=== PATIENT | male | born 1955 | race Caucasian/White ===

== ENCOUNTER 2023-09-01 12:16 | Emergency (ER) | payer MEDICARE, SELFPAY ==
--- NOTE | 2023-09-01 12:32 | ED.GENADULT ---
HPI - General Adult General Chief complaint: Upper Respiratory Infection Stated complaint: Congestion/throat Source: patient, RN notes reviewed and old records reviewed Mode of arrival: ambulatory Limitations: no limitations History of Present Illness HPI narrative: 67-year-old male patient presents to [facility] with complaint of cough, congestion, sore throat per 10 days. Patient taking NyQuil on occasion. Patient states symptoms are improving but worried because he is not completely better. Patient denies chest pain, shortness of breath, dizziness, weakness, fever. patient states is also now sic Related Data Home Medications Medication Instructions Recorded Confirmed allopurinol 300 mg tablet mg 09/01/23 atorvastatin 40 mg tablet mg 09/01/23 clopidogrel 75 mg tablet mg 09/01/23 gabapentin 300 mg capsule mg 09/01/23 hydrocodone 5 mg-acetaminophen 325 tablet 09/01/23 mg tablet levothyroxine 125 mcg tablet mcg 09/01/23 trazodone 50 mg tablet mg 09/01/23 Allergies Allergy/AdvReac Type Severity Reaction Status Date / Time aspirin AdvReac Unknown makes me Unverified 11/12/13 15:22 bleed longer than usual Review of Systems Constitutional: Constitutional: Reports no additional constitutional complaints, Denies body ache(s), Denies chills, Denies fatigue, Denies fever(s) and Denies headache(s) Eyes: Eyes: Reports no additional eye complaints and Denies blurry vision ENT: Reports system reviewed and no additional complaints, except as documented, Denies vertigo, Denies dizziness, Denies ear discharge, Denies otalgia, Denies facial pain, Denies headache(s), Reports nasal congestion, Reports nasal discharge, Denies sinus pain, Denies sinus pressure and Reports sore throat Cardiovascular: Cardiovascular: Reports no additional cardiovascular complaints, Denies chest pain, Denies chest pain at rest, Denies rapid heart rate and Denies dyspnea Respiratory: Respiratory: Reports no additional respiratory complaints, Reports chest congestion, Reports cough, Denies pain on inspiration, Denies pain with cough and Denies dyspnea Gastrointestinal: Gastrointestinal: Denies abdominal pain, Denies diarrhea, Denies nausea and Denies vomiting Integumentary/Breasts: Skin/Breast: Denies rash Neurologic: Reports system reviewed and no additional complaints, except as documented, Denies vertigo, Denies dizziness and Denies headache(s) Endocrine: Endocrine: Denies fatigue PMFSH Comments At the time of my signature, I reviewed and agree with the nursing past medical, surgical, social, and family history. There is no relevant family history pertinent to the patient complaint. Exam Const: General: cooperative, healthy appearing, no acute distress and well nourished Nutritional Appearance: well nourished Orientation/consciousness: patient oriented x3 Limitations: no limitations HENMT: Head: normal to inspection and normocephalic Ears: external ears normal, TM's normal bilaterally, mastoids normal and Abnormal EAC present Face/Nose/Sinus: normal facial exam Face and sinus: normal facial exam Mouth: Yes Normal oral and palatal mucosa present, Yes oropharynx normal and Yes moist mucous membranes Throat: tonsils normal, uvula midline and no uvular edema Eyes: General: appearance normal, both eyes and all related structures Sclera: sclerae normal Pupils: Equal, round and reactive pupils present Resp: Effort & Inspection: normal respiratory effort, able to speak in complete sentences, no audible wheezes, no cough, no respiratory distress and no retractions Auscultation: clear to auscultation bilaterally, no crackles, no rales, no rhonchi and no wheezes Cardio: Rate: regular rate Rhythm: regular rhythm Skin: General skin exam: normal color and no rashes or lesions noted Neuro: General: patient oriented x3 Cranial nerves: Yes Equal, round and reactive pupils present Psych: Appearance: grossly normal Menta
[2023-09-01 12:39] VITALS: BP 160/74; PULSE 96; RESP 16; TEMP 37.1; O2SAT 98
== END 2023-09-01 12:49 | disposition home or self-care (01) ==
PROVIDERS: Emergency Provider Registered Nurse; PCP Internal Medicine
DX: B34.9 Viral infection, unspecified (principal); E78.00 Pure hypercholesterolemia, unspecified; M10.9 Gout, unspecified
CPT/HCPCS: 99203; G0463

== ENCOUNTER 2024-09-20 12:30 | Emergency (ER) | payer MEDICARE, SELFPAY ==
[2024-09-20 12:54] VITALS: BP 161/92; PULSE 97; RESP 20; TEMP 36.5; O2SAT 97
--- NOTE | 2024-09-20 12:55 | ED_ITS ---
HPI - URI/Sore Throat General Chief Complaint: Upper Respiratory Infection Stated Complaint: PERSISTENT COUGH X1 MONTH Time Seen by Provider: 09/20/24 13:17 Source: patient and RN notes reviewed Mode of arrival: ambulatory Limitations: no limitations History of Present Illness HPI Narrative: 68-year-old male presents with concern for cough for 1 month. Reports that started get better poison not go away and then got worse. He has been taking [id number] medications without relief MD elicited complaint: cough Related Data Home Medications ?Medication ?Instructions ?Recorded ?Confirmed ?Last Taken ?Type allopurinol 300 mg tablet mg 09/01/23 Unknown History atorvastatin 40 mg tablet mg 09/01/23 Unknown History clopidogrel 75 mg tablet mg 09/01/23 Unknown History gabapentin 300 mg capsule mg 09/01/23 Unknown History hydrocodone 5 mg-acetaminophen 325 tablet 09/01/23 Unknown History mg tablet levothyroxine 125 mcg tablet mcg 09/01/23 Unknown History trazodone 50 mg tablet mg 09/01/23 Unknown History Allergies Allergy/AdvReac Type Severity Reaction Status Date / Time aspirin AdvReac Unknown makes me Unverified 09/20/24 12:59 bleed longer than usual Review of Systems Review of Systems: CONSTITUTIONAL: Reports malaise. Denies chills, sweats, or fever. EYES: Denies visual changes, redness, or discharge. ENT: Denies rhinorrhea, congestion, sinus pain, otalgia and sore throat. CARDIOVASCULAR: Denies chest pain, palpitations, or edema. RESPIRATORY: Reports persistent cough. Denies dyspnea. GASTROINTESTINAL: Denies abdominal pain, nausea, vomiting, diarrhea SKIN: Denies rash or itching. MUSCULOSKELETAL: Denies myalgia. NEUROLOGIC: Denies headache. All systems reviewed & are unremarkable except as noted in HPI and below PMFSH Comments At time of signature, agree with nursing past medical, surgical, social and family history. There is no relevant family history pertinent to the presenting complaint Exam Narrative: GENERAL: Well-appearing, well-nourished, and in no acute distress. HEAD: Normocephalic EYES: PERRLA, conjunctivae clear ENT: Nares clear Mucous membranes moist. TM pearly hwang with sharp light reflex bilaterally; no tragal tenderness. Oropharynx not erythematous without lesions. Tonsils not enlarged and without exudate, no drooling, no hoarseness, no trismus, uvula midline. NECK: Supple. No lymphadenopathy CHEST: Clear to auscultation, breath sounds equal. No wheezing, rhonchi, rales, or stridor. No respiratory distress, speaks in full sentences. Cough noted HEART: Regular rate and rhythm. No murmur heard. SKIN: Warm, dry, no rash. NEURO: Alert and oriented x3. PSYCH: Normal mood and affect Course Course Emergency Course: Patient is aware of diagnosis, understands and agrees to treatment plan. Anticipatory guidance given. Patient agrees to follow-up as directed and is aware of reasons to seek care at the emergency department. Portions of this record may have been created with voice recognition software Level of Care: Express Care Visit Vital Signs Vital signs: Vital Signs Temperature 97.7 F 09/20/24 12:54 Pulse Rate 97 09/20/24 12:54 Respiratory Rate 20 09/20/24 12:54 Blood Pressure 161/92 H 09/20/24 12:54 Pulse Oximetry 97 09/20/24 12:54 Oxygen Delivery Room Air 09/20/24 12:54 Temperature 97.7 F 09/20/24 12:54 Pulse Rate 97 09/20/24 12:54 Respiratory Rate 20 09/20/24 12:54 Blood Pressure 161/92 H 09/20/24 12:54 Pulse Oximetry 97 09/20/24 12:54 Oxygen Delivery Room Air 09/20/24 12:54 Reviewed. MDM - URI/Sore Throat MDM Narrative Medical decision making narrative: Differential diagnosis considered: Castro virus, strep pharyngitis, allergic rhinitis, upper respiratory tract infection, sinusitis, rhinosinusitis, nasopharyngitis. viral pharyngitis, otitis media, otitis externa, pneumonia, bronchitis, viral cough syndrome, viral syndrome, and influenza. Exam findings show no acute concerns or changes; patient is non-toxic appearing and is in no distress. Patient is appropriate for outpatient treatment and follow-up. Lab Data Attestation: I reviewed the patient's lab results. Critical Care Time Critical Care Time Critical Care Time: No Discharge Plan Discharge Clinical Impression: Lower respiratory tract infection Patient Disposition: Home, Self-Care Condition: Stable Instructions: Antibiotic Form, Acute Cough (ED) Additional Instructions: 1) Please follow-up with your primary care doctor in the next 1-2 days. 2) If you have any worsening of symptoms or any other urgent concerns please go to the ER. 3) Please take medications as prescribed and continue taking your home medications as usual. 4) Please read and follow information included in discharge instructions. Patient Language: [place] Prescriptions: New azithromycin [Zithromax Z-Crispin] 250 mg tablet See Rx Instructions .ROUTE .COMPLEX Qty: 6 0RF Rx Instructions: take 500 mg today (day 1), then 250 mg for 4 days (days 2-5) methylprednisolone [Medrol (Crispin)] 4 mg tablets,dose pack See Rx Instructions .ROUTE .COMPLEX Qty: 21 0RF Rx Instructions: orally per package directions No Action atorvastatin 40 mg tablet trazodone 50 mg tablet hydrocodone-acetaminophen 5-325 mg tablet clopidogrel 75 mg tablet levothyroxine 125 mcg tablet gabapentin 300 mg capsule allopurinol 300 mg tablet benzonatate 100 mg capsule 100 mg PO TID PRN (Reason: cough) Qty: 10 0RF Follow-up/Referrals: Symone,Rober Crockett MD [Primary Care Provider] - Time of Disposition: 13:37
--- OUTSIDE RECORDS SUMMARY | 2024-09-20 14:22 | XMS_ITS | CONTINUITY OF CARE DOCUMENT ---
Author Name dale hunter Address Unknown Organization [facility] Address [address] [place] [address] Phone [phone] Care Team Providers Care Control Room Operator Name Role Phone Danika Ortiz MD Unavailable ROBERT RICHARDSON MD Unavailable [phone] ROBERT RICHARDSON MD Unavailable PROBLEMS Condition Status Date Provider Notes Other symptoms involving car diovascular system active Danika Ortiz MD CAD - S/P four vessel CABG 2 014 - Casey to LAD, Casey to radial and sequential OM1 & OM3, SVG to RCA active Danika Ortiz MD Carotid artery stenosis - s/ p right carotid endartectomy 2016 active Danika Ortiz MD Gout active Danika Ortiz MD Hypothyroidism active Danika Ortiz MD Prediabetes active Danika Ortiz MD Hyperlipidemia active Danika Ortiz MD back pain active Danika Ortiz MD ENCOUNTERS Date Type Provider Location Encounter Diag nosis - In-person encounter Office Visit Danika Ortiz MD [place] [facility] CAD - S/P four vessel CABG 2014 - Casey to LAD, Casey to radial and sequential OM1 & OM3, SVG to RCAHyperlipidemia - In-person encounter Office Visit Danika Ortiz MD [facility] Other symptoms involving cardiovascular systemCAD - S/P four vessel CABG 2014 - Casey to LAD, Casey to radial and sequential OM1 & OM3, SVG to RCACarotid artery stenosis - s/p right carotid endartectomy 2016GoutHypothyroidismPr ediabetesHyperlipidemiab ack pain VITAL SIGNS Date Observation Value Provider Body Mass Index (Ratio) 32.88 kg/m2 Jane Ortiz MD blood pressure, diastolic 90 mm[Hg] Yin Conklin Darin blood pressure, systolic 153 mm[Hg] Anne Marie Davenport Darin oxygen saturation, oximetry 99 % Justencelestine Webster respiratory rate E&M 18 /min Torsten green Webster pulse rate 87 /min Justen Soham mae weight E&M 235.8 [lb_av] Justen Roger fabiola height E&M 71 [in_i] Justen Soham mae Body Mass Index (Ratio) 32.63 kg/m2 Jane Ortiz MD blood pressure, cuff size large Crow Jacobo blood pressure, diastolic 78 mm[Hg] Crow Jacobo blood pressure, systolic 128 mm[Hg] Jimmy Jacobo oxygen saturation, oximetry 97 % Britney Jacobo respiratory rate E&M 18 /min Britney Jacobo pulse rate 94 /min Britney Jacobo weight E&M 234 [lb_av] Britney Jacobo height E&M 71 [in_i] Britney Jacobo ALLERGIES No Known Drug Allergies HISTORY OF MEDICATION USE Medication Status Instructions Dates Provider Indications Com ments TRAZODONE HCL 50 MG ORAL TABLET active 1 tab at bedtime Britney Jacobo LEVOTHYROXINE SODIUM 125 MCG ORAL TABLET active ONE TAB. DAILY Britney Jacobo ALLOPURINOL 300 MG ORAL TABLET active ONE TAB. DAILY Britney Jacobo CLOPIDOGREL BISULFATE 75 MG ORAL TABLET active 1 tab daily Britney Jacobo HYDROCODONE-ACETAMIN OPHEN 7.5-325 MG ORAL TABLET active as needed Britney Jacobo ATORVASTATIN CALCIUM 80 MG ORAL TABLET active 1 tab daily Britney Jacobo SOCIAL HISTORY Date Observation Value Provider social history E&M S moking History: P atient is a former smoker. Danika Ortiz MD social history reviewed E&M revi ewed - no changes required Danika Ortiz MD smoking, year quit 2014 Justen Webster cigarette use yes Justen hicks smoking status Former smoker Justen Denis social history E&M S moking History: Windy carter is a former smoker. Danika Ortiz MD social history reviewed E&M revi ewed - no changes required Danika Ortiz MD number of grandchildren Danika Jacobo smoking, year quit 2014 Britney Cm briscoe cigarette use yes Britney Jacobo smoking status Former smoker Britney tran FUNCTIONAL STATUS Date Observation Value Provider HRA, CV Assess/Plan, Angina (inactive) Management Plan continue current therapy Danika Ortiz MD HRA, CV Assess/Plan, Angina (inactive) Management Plan continue current therapy Danika Ortiz MD FAMILY HISTORY Family Member Condition Mother Family History Unkno wn INSURANCE PROVIDERS Payer name Policy type / Coverage type [place] [employer] party ID [facility] [id number] ADVANCE DIRECTIVES Name Date DISCUSSED - NO DECISION MADE TREATMENT PLAN Date Name Performer Cardiology:No recurrence. On all opurinol 300mg a day. Danika Ortiz MD Cardiology:Chest eri n free. Continues on aspirin and palvix and has remained asymptomatic with normal effort tolerance. Danika Ortiz MD Cardiology:On low carb diet. Lewis Ortiz MD Cardiology:On replacement therap y. Danika Ortiz MD Cardiology:No recurrence. On all opurino 300mg a day. Danika Ortiz MD Cardiology:On atorvastatin which he continues. Danika Ortiz MD Cardiology:No caroti d bruits. Had a carotid doppler done from [facility] the results of which are pending. Danika Ortiz MD Cardiology:Chest eri n free. Continues on aspirin and palvix and has remaind asymptomatic with normal effort tolerance. Danika Ortiz MD Cardiology:Last blood sugar was 108. Danika Ortiz MD Cardiology:Takes pain medicine i ntermittently. Danika Ortiz MD Cardiology:On atorvastatin 80 mg daily. Danika Ortiz MD Cardiology:On replacement therap y, which he continues. Danika Ortiz MD Cardiology:He has a right carotid bruit. Recently had a carotid doppler at [facility], will get the report. Danika Ortiz MD Cardiology:He has do ne remarkably well. Has good exercise tolerance, no symptoms of CP or SOB. He is on ASA/plavix which he continues. We will get his bypass report from [facility]. Danika Ortiz MD HISTORY OF PROCEDURES Procedure Date Procedure Name Provider Procedure Notes S tatus EKG Danika Ortiz MD complet ed SNOMED-CT: [id number] Current Medications Documented Danika Ortiz MD completed EKG Danika Ortiz MD complet ed SNOMED-CT: [id number] Current Medications Documented Danika Ortiz MD completed
--- OUTSIDE RECORDS SUMMARY | 2024-09-20 14:22 | XMS_ITS | Clinical Summary ---
Author Organization [facility] Address [address] [place] [address] Care Team Providers Care Hris Manager Name Role Phone Rober Ashby MD Primary Care Provider + Allergies No known active allergies Medications mupirocin (BACTROBAN) 2 % ointment Apply topically 2 (two) times a day Apply to area of infection right side of neck with each dressing change. Collaborating physician Ross Strong MD 22 g 1 4 Active Active Problems Problem Noted Date Diagnosed Date Infected sebaceous cyst of skin 08/08/2023 Surgical History Surgery Date Site/Laterality Comments CAROTID ENDARTERECTOMY Social History Tobacco Use Types Packs/Day Years Used Date Smoking Tobacco: Former Cigarettes Tobacco Cessation:Counseling Given: Not Answered Alcohol Use Standard Drinks/Week Comments Not Currently 0 (1 standard drink = 0.6 oz pur e alcohol) Personal Safety Answer Date Recorded Have you ever been in or are you currently in a harmful physical or emotional relationship or is someone making you feel afraid or unsafe? 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 Gender Identity Not on file Sexual Orientation Not on file Obstetrics History Last Filed Vital Signs Vital Sign Reading Time Taken Comments Blood Pressure 135/92 08/08/2023 8:18 PM STEAM PIPE FITTER Pulse 89 08/08/2023 8:18 PM STEAM PIPE FITTER Temperature 36.9 C (98.4 F) 08/08/2023 8:18 PM STEAM PIPE FITTER Respiratory Rate 16 08/08/2023 8:18 PM STEAM PIPE FITTER Oxygen Saturation 97% 08/08/2023 8:18 PM STEAM PIPE FITTER Inhaled Oxygen Concentration - - Weight 106.6 kg (235 lb) 08/08/2023 5:50 PM STEAM PIPE FITTER Height 180.3 cm (5' 11 ) 08/08/2023 5:50 PM STEAM PIPE FITTER Body Mass Index 32.78 08/08/2023 5:50 PM STEAM PIPE FITTER Plan of Treatment Health Maintenance Due Date Last Done Comments Colon Cancer Screening-Colonoscopy 1955 Depression Screening 1955 Fall Risk Assessment 1955 Hepatitis C Screening 1955 Hepatitis B Screening 10/26/1971 Abdominal Aortic Aneurysm (A AA) Screen 2018 06/25/2017 Well Visit 65+ 2018 DTaP/Tdap/Td Vaccine (2 - Td or Tdap) 09/28/2023 09/27/2013 Covid-19 Vaccine ( - 2023-2 5 season) 2024 05/13/2022, 10/12/2020, 09/24/2020 Influenza Vaccine (#1) 2024 3, 06/18/2022, 04/20/2020, Additional history exists Zoster Vaccine Completed 07/06/2018, 05/11/2018 Pneumococcal vaccine 65+ Completed 022, 02/16/2019, 12/07/2015 Insurance MEDICARE Care Teams Hris Manager Relationship Specialty Start Date End Date Rober Ashby MD [address] [facility] [address] [place] [address] PCP - General Internal Medicine 08/08/23
--- OUTSIDE RECORDS SUMMARY | 2024-09-20 14:22 | XMS_ITS | Encounter Summary ---
Author Organization [facility] Address [address] [place] [address] Care Team Providers Care Ticket Scheduler Name Role Phone Rober Ashby MD Primary Care Provider [phone] Encounter Details Date Type Department Care Team (Late st Contact Info) Description 09/01/[address] 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 Patient reports no known allergies. PHARMACY NUMBER: [phone] PROBLEMS: I called pt & asked him about the request for a refill on the Z-georges. Pt was feeling better since he was seen in the office on 08/10/07. got sick & he's starting to have some symptoms again. CONGESTION: Patient complains of sinus congestion. The symptoms began approximately 2 days ago. COUGH:Patient complains of cough. The symptoms began approximately 2 days ago. non-productive HEADACHE: Patient complains of headache. The symptoms began approximately 2 days ago. Therapies tried include Aspirin. RUNNY NOSE: Patient complains of runny nose. The runny nose symptoms began approximately 2 days ago. SORE THROAT: Patient complains of sore throat. The sore throat began approximately 2 days ago. SECTION 1: REQUESTED ACTION licasl 09/01/07 at 05:34 pm: MEDICATION REQUEST: Patient requests a refill. Z-georges DOCTOR`S RESPONSE: britta 09/01/07 at 05:36 pm MEDICATIONS: Call in to Pharmacy ZITHROMAX Z-GEORGES ORAL TABLET 250 MG, DIRECTED, 1 Dispensed, status: CONTINUED, 09/01/2007. 09/01/07 Phoned above script to pharmacy. /yesenia Electronically Signed by: Ashlyn Villalobos on Saturday, September 01, 2007 documented in this encounter Plan of Treatment Upcoming Encounters Date Type Department Care Team (Late st Contact Info) Description 10/06/2024 10:40 AM CDT Office Visit [facility] Primary [facility] [place] [phone] Rober Ashby MD [address] [place] [address] [address] [place] [phone] 01/13/2025 1:00 PM CDT Appointment [facility] Blood Flow [address] [place] [address] Ari Stearns MD [facility] [address] [facility] [address] [place] [phone] 01/13/2025 1:45 PM CDT Office Visit [facility] Senior Business Broker [facility] [address] [facility] princess [address] [place] [phone] Ari Stearns MD [facility] [address] [place] [phone] documented as of this encounter Visit Diagnoses Not on filedocumented in this encounter Care Teams Ticket Scheduler Relationship Specialty Start Date End Date Rober Ashby MD PCP - General 05/03/08 documented as of this encounter
--- OUTSIDE RECORDS SUMMARY | 2024-09-20 14:22 | XMS_ITS | Encounter Summary ---
Author Organization [facility] Address 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 CHIEF COMPLAINT abd. pain HISTORY: abd cramping diarrhea x 3-4 days, cough congestion sinus worsenning HISTORY: 272.4-HYPERLIPIDEMIA The patient is somewhat compliant with the low saturated fat diet. SOCIAL HISTORY: TOBACCO USE: Has no significant smoking history. DISCUSSED SMOKING: counselled. PHYSICAL EXAMINATION: CONSTITUTIONAL: GENERAL APPEARANCE: Healthy appearing patient in no distress. EARS, NOSE, MOUTH AND THROAT: EARS: EFFUSION PRESENT BILATERALLY. ORAL: OROPHARYNX ERYTHEMATOUS. NECK/THYROID: Trachea midline. No thyroid enlargement, tenderness, or mass. No supraclavicular or cervical adenopathy. RESPIRATORY: Clear to auscultation and percussion. Normal respiratory effort. CARDIOVASCULAR: CARDIAC: Regular rhythm. No murmurs, rubs, or gallops. ARTERIAL: No aortic bruits. EDEMA/VARICOSITIES OF EXTREMITIES: No edema or varicosities. GASTROINTESTINAL: ABDOMEN: Soft, non-tender, without masses. Bowel sounds active. LIVER/SPLEEN/KIDNEY: No hepatosplenomegaly, tenderness or nodularity. Kidneys not palpable. ASSESSMENT/PLAN: 272.4-HYPERLIPIDEMIA recheck lab LAB ORDERS: Order number: [id number] Test Ordered: LIPID PANEL 1078 461.9-SINUSITIS UNSPECIFIED rx reassess MEDICATIONS: SEPTRA DS ORAL TABLET 800-160 MG, 1 Two Times A Day, 14 Dispensed, status: NEW PRESCRIPTION, 03/26/2007. 787.91-DIARRHEA bland diet, cont fluid intake, check stool cx LAB ORDERS: Order number: [id number] Test Ordered: C DIFFICILE TOXIN ASSAY 8880 Order number: [id number] Test Ordered: CULTURE, STOOL (SPENCER, SHIG, CAMPY, ECOLI 0157:H7) 8951 Order number: [id number] Test Ordered: GIARDIA ANTIGEN DETECTION 8958 305.1-TOBACCO ABUSE cigars , advised cessation RETURN VISIT : Instructed to call if not improving. Electronically Signed by: Rober Ashby MD on February documented in this encounter Plan of Treatment Upcoming Encounters Date Type Department Care Team (Late st Contact Info) Description 10/06/2024 10:40 AM CDT Office Visit [facility] Primary Care [id number] [place] [phone] Rober Ashby MD [address] [place] [address] [place] [phone] 01/13/2025 1:00 PM CDT Appointment [facility] Supp Sv[facility] Blood Flow [address] [place] [address] Ari Stearns MD [address] [place] [address] 01/13/2025 1:45 PM CDT Office Visit [facility] Sql Programmer [facility] [address] [place] [address] Ari Stearns MD [address] [place] [address] documented as of this encounter Visit Diagnoses Not on filedocumented in this encounter Care Teams Tafe Lecturer Relationship Specialty Start Date End Date Rober Ashby MD PCP - General 05/03/08 documented as of this encounter
--- OUTSIDE RECORDS SUMMARY | 2024-09-20 14:22 | XMS_ITS | Referral Summary ---
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 Gender Identity Not on file Sexual Orientation Not on file Last Filed Vital Signs Vital Sign Reading Time Taken Comments Blood Pressure 135/92 08/08/2023 8:18 PM NOUGAT CUTTER MACHINE Pulse 89 08/08/2023 8:18 PM NOUGAT CUTTER MACHINE Temperature 36.9 C (98.4 F) 08/08/2023 8:18 PM NOUGAT CUTTER MACHINE Respiratory Rate 16 08/08/2023 8:18 PM NOUGAT CUTTER MACHINE Oxygen Saturation 97% 08/08/2023 8:18 PM NOUGAT CUTTER MACHINE Inhaled Oxygen Concentration - - Weight 106.6 kg (235 lb) 08/08/2023 5:50 PM NOUGAT CUTTER MACHINE Height 180.3 cm (5' 11 ) 08/08/2023 5:50 PM NOUGAT CUTTER MACHINE Body Mass Index 32.78 08/08/2023 5:50 PM NOUGAT CUTTER MACHINE Plan of Treatment Not on file Insurance [facility] MEDIC[facility] Care Teams Porter Marina Relationship Specialty Start Date End Date Rober Ashby MD [address] [place] [address] PCP - General Internal Medicine 08/08/23
--- OUTSIDE RECORDS SUMMARY | 2024-09-20 14:22 | XMS_ITS | Clinical Summary ---
Author Organization [facility] [address] Address [address] [place] [address] Care Team Providers Care Radiology Resident Name Role Phone Rober Ashby MD Primary Care Provider [phone] Source Comments [facility],non-owned Affiliates and Associated Physician Practices is amultiple site organization consisting of ambulatory clinics and hospital sitesin [place], [place], [place] and [place]. This disclosure is being madepursuant to the Care Everywhere program and may not contain all information available regarding this patient. Last updated 18.[facility] Allergies Active Allergy Reactions Criticality Noted Date Comments Aspirin 01/02/2010 Medications * Be aware that medications may not be up to date on this document. Alwaysverify current medications with the patient. Medication Sig Dispensed Refills Start Date End Date Status pravastatin (PRAVACHOL) 20 MG tablet Take 20 mg by mouth at bedtime. Active meloxicam (MOBIC) 15 MG tablet Take 15 mg by mouth daily. Active terbinafine (LAMISIL) 250 MG tablet Take 250 mg by mouth daily. Active allopurinol (ZYLOPRIM) 100 MG tablet Take 100 mg by mouth daily. Active levothyroxine (SYNTHROID) 50 MCG tablet Take 50 mcg by mouth. As directed Active B-12 PO Take by mouth. As directed Active hydrocodone-acetamino phen (NORCO) 7.5-325 MG tablet Take 1 Tab by mouth every 4 hours as needed for Pain. Active Active Problems Problem Noted Date Diagnosed Date Spinal stenosis 01/02/2010 Family History * Patient is adopted Relation Name Status Comments Father Mother Social History Tobacco Use Types Packs/Day Years Used Date Smoking Tobacco: Every Day Cigarettes Comments:Cigars Alcohol Use Standard Drinks/Week Comments No 0 (1 standard drink = 0.6 oz pur e alcohol) Sex and Gender Information Value Date Recorded Sex Assigned at Not on file Gender Identity Not on file Sexual Orientation Not on file Last Filed Vital Signs Vital Sign Reading Time Taken Comments Blood Pressure - - Pulse - - Temperature - - Respiratory Rate - - Oxygen Saturation - - Inhaled Oxygen Concentration - - Weight 108.9 kg (240 lb) 01/05/2010 10:24 AM CDT Height 180.3 cm (5' 11 ) 01/05/2010 10:24 AM CDT Body Mass Index 33.47 01/05/2010 10:24 AM CDT Plan of Treatment Health Maintenance Due Date Last Done Comments COLOGUARD (AGES 45-75) - COL ON CA SCREENING 1953 COLON MONITORING 1953 COLONOSCOPY - COLON CA SCREENING 1953 CT COLONOGRAPHY - COLON CA SCREENING 1953 Colorectal Cancer Screening 1953 FIT - COLON CA SCREENING 1953 FLEX SIG - COLON CA SCREENING 1953 HEPATITIS C SCREENING 10/21/1971 DTAP/TDAP/TD VACCINES (1 - Tdap) 1972 PNEUMOCOCCAL VACCINE 50+ (1 of 2 - PCV) 1972 ZOSTER VACCINE (1 of 2) 10/26/2003 AAA SCREENING 2018 COVID-19 VACCINE ( - 2023-2 5 season) 2024 INFLUENZA VACCINE (#1) 2024 DEPRESSION SCREENING 07/28/2024 Respiratory Syncytial Virus (RSV) Vaccine Pt: or over 60 yrs (1 - 1-dose 75+ series) 2028 HEPATITIS B VACCINE Aged Out No longe r eligible based on patient's age to complete this topic HIB VACCINE Aged Out No longer eligi ble based on patient's age to complete this topic HPV VACCINE Aged Out No longer eligi ble based on patient's age to complete this topic MENINGOCOCCAL (Group B) VACCINE Aged Out No longer eligible based on patient's age to complete this topic MENINGOCOCCAL VACCINE Aged Out No hermila elia eligible based on patient's age to complete this topic Care Teams Radiology Resident Relationship Specialty Start Date End Date Rober Ashby MD PCP - General 01/05/10
--- OUTSIDE RECORDS SUMMARY | 2024-09-20 14:22 | XMS_ITS | Clinical Summary ---
Author Organization [facility] Address [address] [place] [address] Care Team Providers Care Marketing Intelligence Analyst Name Role Phone Rober Ashby MD Primary Care Provider [phone] Allergies Active Allergy Reactions Criticality Noted Date Comments Aspirin Other (See Comments),Unknown 008 Nose bleeds Medications metoprolol tartrate (LOPRESSOR) 25 mg tablet Take 25 mg by mouth 2 times daily. Active nitroglycerin (NITROSTAT) 0.4 mg Tablet, Sublingual Place 1 Tablet (0.4 mg) under tongue every 5 minutes as needed for Chest Pain. 25 Tablet 3 12/20/19 18 Active gabapentin (NEURONTIN) 300 mg capsule Take 1 Capsule (300 mg) by mouth 3 times daily. 270 Capsule 3 10/11/19 23 Active Additional Information Patient not taking.Reported on 04/05/2024 acetaminophen (TYLENOL) 500 mg tablet Take 1 Tablet (500 mg) by mouth every 6 hours as needed for Pain. 07/04/20 23 Active atorvastatin (LIPITOR) 40 mg tablet TAKE 1 TABLET(40 MG) BY MOUTH EVERY DAY AT BEDTIME 90 Tablet 3 11/10/19 24 Active levothyroxine 125 mcg tablet TAKE 1 TABLET(125 MCG) BY MOUTH DAILY IN THE MORNING 100 Tablet 3 06/03/20 24 Active traZODone (DESYREL) 50 mg tablet TAKE 1 TABLET(50 MG) BY MOUTH DAILY AT BEDTIME 100 Tablet 3 07/01/20 24 Active allopurinoL (ZYLOPRIM) 300 mg tablet TAKE 1 TABLET(300 MG) BY MOUTH DAILY 90 Tablet 3 07/02/20 24 Active clopidogreL (PLAVIX) 75 mg TabletIndications: Stenosis of right carotid artery Take 1 Tablet (75 mg) by mouth daily. NEEDS APPOINTMENT WITH DR. TREVINO FOR FURTHER REFILLS [phone] 90 Tablet 07/05/20 24 Active HYDROcodone-acetam inophen (NORCO) 5-325 mg tabletIndications: Osteoarthritis of lumbar spine, unspecified spinal osteoarthritis complication status Take 1 Tablet by mouth every 4 hours as needed for Pain, Moderate. Max Daily Amount: 6 Tablets 60 Tablet 09/13/19 25 Active HYDROcodone-acetam inophen (NORCO) 5-325 mg tabletIndications: Osteoarthritis of lumbar spine, unspecified spinal osteoarthritis complication status Take 1 Tablet by mouth every 4 hours as needed for Pain, Moderate. Max Daily Amount: 6 Tablets 60 Tablet 07/29/19 25 025 Discontin ued(Reord er) Active Problems Patient Care Coordination No te Formatting of this note migh t be different from the original. 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 (REICH) Hayden Trevino MD- [facility] ( [facility]) ANNUAL MEDICARE WELLNESS-09/27/20 Problem Noted Date Diagnosed Date Infected sebaceous cyst of skin 08/08/2023 Arthralgia of multiple sites 07/18/2023 Essential hypertension 07/18/2023 Hx of back injury 07/18/2023 Hx of gout 07/18/2023 Vitamin D deficiency 07/18/2023 Prediabetes 10/14/2018 History of coronary artery bypass graft 06/27/20 17 Gout 08/16/2016 Other specified symptoms and signs involving the circulatory and respiratory systems 08/16/2016 Stenosis of carotid artery 08/16/2016 Symptomatic bradycardia 03/14/2016 S/P carotid endarterectomy 03/14/2016 Overview (03/14/2016): Right Bilateral carotid artery stenosis 01/29/2016 Hypothyroidism 11/24/2014 CAD (coronary artery disease) 08/15/2014 History of coronary artery bypass graft 07/28/19 15 Spinal stenosis 01/02/2010 Chronic low back pain with bilateral sciatica Hyperlipidemia 12/01/2006 Benign essential tremor 11/24/2006 Osteoarthritis 08/22/2004 Coronary artery disease invo lving [place] coronary artery of [place] heart without angina pectoris Resolved Problems Problem Noted Date Diagnosed Date Resolved Date Preop cardiovascular exam 06/27/2017 Renal colic on right side 06/25/2017 Hypothyroidism 09/28/2013 11/24/2014 Headache(784.0) 08/10/2007 05/03/2008 Acute sinusitis, unspecified 03/26/2007 05/03/2008 Diarrhea 03/26/2007 05/03/2008 Tobacco use disorder 03/26/2007 008 Screening for thyroid disorder 11/24/2006 05/03/2008 Special screening for malign ant neoplasm of prostate 11/24/2006 05/03/2008 Screening for lipoid disorders 11/24/2006 05/03/2008 Backache, unspecified 08/22/20042007 Encounters Date Type Department Care Team Description 09/13/2024 Refill [facility] [address] [address] Rober Ashby MD Osteoarthritis of lumbar spine, unspecified spinal osteoarthritis complication status 08/24/2024 External Device Data STL ABSTRACTION Provider, Abstract 08/19/2024 External Device Data STL ABSTRACTION Provider, Abstract 07/28/2024 Refill [facility] [place] [address] [place] [address] Rober Ashby MD Osteoarthritis of lumbar spine, unspecified spinal osteoarthritis complication status 07/15/2024 1:45 PM MONOMER RECOVERY SUPERVISOR Office Visit [facility] Heart [address] [place] [phone] Ari Stearns MD Bilateral carotid artery stenosis (Primary Dx) 07/15/2024 1:00 PM MONOMER RECOVERY SUPERVISOR - 07/15/2024 11:59 PM MONOMER RECOVERY SUPERVISOR Hospital Encounter [facility] Blood Flow [address] [place] [phone] Ari Stearns MD Discharge Disposition: Home or Self Care 07/04/2024 Refill [facility] At [address] [place] [address] Hayden Trevino MD Stenosis of right carotid artery 07/02/2024 [facility] Internal Medicine [facility] [address] [place] [address] Rober Ashby MD 07/01/2024 [facility] Primary Care [address] [place] [address] Rober Ashby MD from Last 3 Months Immunizations Immunization Administration Dates Next Due (ADACEL/BOOSTRIX)(10 YR UP) TDAP VACCINE, 0.5ML, IM 09/27/2013 (PFIZER)(12 YR UP) COVID-19 VACCINE - EMERGENCY USE AUTHORIZATION, MRNA, [id number](PF) 30 MCG/0.3 ML IM SUSP 10/14/2020,09/24/2020 (PNEUMOVAX 23)(50 YRS UP) PN EUMOCOCCAL POLYSACCHARIDE (PPV23) 0.5 ML, IM 10/08/2021,12/07/2015 (PREVNAR 13)(6 WKS UP) PNEUM OCOCCAL CONJUGATE (PCV13) 0.5 ML, IM 02/16/2019 (Pfizer Bivalent)(12 Yr Up) COVID-19 Vaccine - Emergency Use Authorization, MRNA, Lnp-S(Pf) 30 Mcg/0.3 Ml Susp 05/13/2022 (SHINGRIX)(50 YRS UP) ZOSTER VACCINE RECOMBINANT, 0.5 ML, IM 07/06/2018,05/11/2018 INFLUENZA VACCINE HIGH DOSE QUADRIVALENT 65 YR UP PF IM 04/04/2023,06/18/2022,06/08/2021 INFLUENZA VACCINE HIGH DOSE TRIVALENT SPLIT VIRUS, (65 YR UP), 0.5ML (PF), IM 04/05/2024 Influenza Seasonal Unspecifi ed Formulation IM 04/22/2018,05/19/2014 Influenza Vaccine High Dose 65+ Yrs IM 0,05/19/2019 Influenza Vaccine Tri Adjuvanted 65+ PF IM 05/19 Family History * Patient is adopted Medical History Relation Name Comments Colon Cancer Neg Hx Social History Tobacco Use Types Packs/Day Years Used Date Smoking Tobacco: Former Cigarettes 1 20 0 08/16/1994 - 08/16/2014 Cigars Passive Smoke Exposure: Past Smokeless Tobacco: Never Tobacco Cessation:Counseling Given: No Alcohol Use Standard Drinks/Week Comments No 0 (1 standard drink = 0.6 oz pur e alcohol) Social Connections Answer Date Recorded In a typical week, how many times do you talk on the phone with family, friends, or neighbors? Once a week 05/29/2020 How often do you get together with friends or re latives? Once a week 05/29/2020 How often do you attend sabianism or protestant serv ices? Never 05/29/2020 Do you belong to any clubs o r organizations such as sabianism groups, unions, fraternal or athletic groups, or school groups? Yes 05/29/2020 Attends Club or Organization Meetings Not on darrian e 05/29/2020 Marital Status Not on file 05/29/2020 Financial Resource Strain Answer Date R ecorded How hard is it for you to pa y for the very basics like food, housing, medical care, and heating? Not hard at all 06/18/2022 Food Insecurity Answer Date Recorded In the past 12 months, have you worried that your food would run out before you had money to buy more? Never true 06/18/2022 In the past 12 months, did y ou run out of food and didn't have money to buy more? Never true 06/18/2022 Transportation Needs Answer Date Record ed In the past 12 months, has l ack of transportation kept you from medical appointments or from getting medications? No 06/18/2022 Lack of Transportation (Non-Medical) Not on file 06/18/2022 Feeling Safe Answer Date Recorded Are you in a relationship wi th someone who hurts you emotionally and/or physically? Unable to obtain 07/03/2023 Food Insecurity Answer Date Recorded Social/Environmental Concerns No concerns Transportation Needs Answer Date Record ed Social/Environmental Concerns No concerns Housing Stability Answer Date Recorded Social/Environmental Concerns No concerns Utility Needs Answer Date Recorded Social/Environmental Concerns No concerns Education Answer Date Recorded What is the highest level of school you have completed or the highest degree you have received? 12th grade 05/29/2020 Sex and Gender Information Value Date Recorded Sex Assigned at Not on file Legal Sex Male 4:31 AM MONOMER RECOVERY SUPERVISOR Gender Identity Not on file Sexual Orientation Not on file Last Filed Vital Signs Vital Sign Reading Time Taken Comments Blood Pressure 148/82 07/15/2024 1:46 PM MONOMER RECOVERY SUPERVISOR Pulse 73 07/15/2024 1:46 PM MONOMER RECOVERY SUPERVISOR Temperature 36.6 C (97.8 F) 08/11/2023 8:59 AM MONOMER RECOVERY SUPERVISOR Respiratory Rate 13 07/04/2023 1:00 PM MONOMER RECOVERY SUPERVISOR Oxygen Saturation 94% 04/05/2024 9:56 AM CDT Inhaled Oxygen Concentration - - Weight 110.7 kg (244 lb) 04/05/2024 9:56 AM CDT Height 180.3 cm (5' 11 ) 04/05/2024 9:56 AM CDT Body Mass Index 34.03 04/05/2024 9:56 AM CDT Plan of Treatment Upcoming Encounters Date Type Department Care Team (Late st Contact Info) Description 10/06/2024 10:40 AM CDT [facility] Visit [facility] [address] [place], [place] [address] [place] [phone] Rober Ashby MD [address] [place] [address] [address] [place] [phone] 01/13/2025 1:00 PM CDT Appointment [facility] Blood Flow [address] [place] [address] Ari Stearns MD [address] [facility] [address] [place] [phone] 01/13/2025 1:45 PM CDT [facility] [address] [address] Ari Stearns MD [address] [facility] [address] [place] [phone] Health Maintenance Due Date Last Done Comments FIT-DNA Q 3 years 1998 FIT/FOBT Q 1 year 1998 Flex Sig/CT Colonography Q 5 years 1998 RSV VACCINE (60+ or ) (1 - Risk 60-74 years 1-dose series) 2013 DIABETES ANNUAL RETINAL EXAM 03/21/2023, 03/21/2022, 03/21/2022, Additional history exists DTAP/TDAP/TD VACCINES (2 - T d or Tdap) 09/28/2023 09/27/2013 COVID-19 Vaccine (4 - 2023-2 5 season) 2024 05/13/2022, 10/14/2020, 09/24/2020 DIABETES ANNUAL FOOT EXAM 09/28/20242023, 09/29/2023, 01/16/2023, Additional history exists DIABETES HBA1C Q 6 MONTHS 11/23/20242023, 01/13/2023, 06/12/2022, Additional history exists DIABETES MICROALBUMIN ANNUAL SCREEN 05/25/2025 05/25/2024 DIABETES: A1C (Auto Order) 05/25/202505/25, 01/13/2023, 06/12/2022, Additional history exists LDL CHOLESTEROL ANNUAL 05/25/2025 , 07/22/2023, 01/13/2023, Additional history exists COLORECTAL SCREENING 11/14/2025 11/14/2020, 11/14/2020, 12/26/2015, Additional history exists Colorectal Cancer Screening 11/14/2025 Abdominal Aortic Aneurysm (A AA) Screening Completed 06/25/2017 ZOSTER VACCINE Completed 07/06/2018, 05/11/2018 PNEUMOCOCCAL VACCINE 65+ YEARS Completed 0 10/08/2021, 02/16/2019, 12/07/2015 INFLUENZA VACCINE Completed 04/05/2024, , 06/18/2022, Additional history exists Medical Devices Implanted Type Area Director Reactor Projects Device Identifier Shelf Expiration Date Model / Serial / Lot Endo Clip Ii 10mm [id number] - [id number] Implanted:Qty : 1 on 07/03/2020 by Abiel Woodward MD at [facility] Clip N/A: Inguinal MEDTRONIC - COVIDIEN [id number] 02/24/2025 [id number] / / [id number] Description:Bilateral Clip Ligating Horizon Med Ti 250016 - Csc - [id number] Implanted:Qty : 1 on 07/03/2023 by Ari Stearns MD at [facility] Clip Left: Neck TELEFLEX- WECK CLOSURE SYS [id number] 03/25/2028 [id number] / / [id number] Clip Ligating Horizon Sm Ti 406525 - Csc - [id number] Implanted:Qty : 1 on 07/03/2023 by Ari Stearns MD at [facility] Clip Left: Neck TELEFLEX INC 12/17/2027 [id number] / / [id number] Patch Vascu-Guard 0.8x8cm Cardio Vg-0108 - [id number] Implanted:Qty : 1 on 07/03/2023 by Ari Stearns MD at [facility] Collagen Left: Neck [employer]IS- BIO-VASC[employer] INC [id number] 01/07/2024 [id number] / / [id number] Description:Left carotid ang ioplasty patch graft Patch Vasc Xenosure Biologic .8x8cm 0.8p8 - [id number] Implanted:Qty : 1 on 03/14/2016 by Veto Minaya MD at [facility] Graft Right: Neck [employer] 09/24/2018 0.8P8 / / [id number] Description:BOVINE Hemostatic Surgiflo 8ml W/ Thrombin 2994 - [id number] Implanted:Qty : 1 on 07/03/2023 by Ari Stearns MD at [facility] Hemostatic Left: Neck J[employer]J- ETHICON INC [id number] 07/27/2024 2994 / / [id number] Mesh Parietex Progrip Flat Sht [id number] - [id number] Implanted:Qty : 1 on 07/03/2020 by Abiel Woodward MD at [facility] Mesh Right: Inguinal [employer] - COVIDIEN [id number] 11/24/2024 [id number] / / [id number] Mesh Parietex Progrip Flat Sht [id number] - [id number] Implanted:Qty : 1 on 07/03/2020 by Abiel Woodward MD at [facility] Mesh Left: Inguinal [employer] - COVIDIEN [id number] 11/24/2024 [id number] / / [id number] Sealant Floseal W/ Apdtr 5ml [id number] - [id number] Implanted:Qty : 1 on 03/14/2016 by Veto Minaya MD at [facility] Sealant Right: Neck MORALES- BIOSCIENCE 05/27/2017 [id number] / / [id number] Procedures Procedure Name Priority Date/Time Associated Diagnosis Comments US CAROTID DOPPLER Routine 07/15/2024 1: 41 PM MONOMER RECOVERY SUPERVISOR Bilateral carotid artery stenosis MICROALBUMIN/CREATI NINE RATIO, RANDOM UR Routine 05/25/2024 10:11 AM CDT Type 2 diabetes mellitus with stage 3 chronic kidney disease, without long-term current use of insulin, unspecified whether stage 3a or 3b CKD (CMS/HCC) LIPID PANEL Routine 05/25/2024 10:09 AM CDT Other hyperlipidemia HEMOGLOBIN A1C Routine 05/25/2024 10:09 AM CDT Type 2 diabetes mellitus with stage 3 chronic kidney disease, without long-term current use of insulin, unspecified whether stage 3a or 3b CKD (CMS/HCC) COLONOSCOPY REPORT 11/14/2020 9: [address] ABDOMEN PELVIS WO CONTRAST Stat 06/25/2017 1:54 PM MONOMER RECOVERY SUPERVISOR Kidney stone from Last 3 Months or Most Recently Relevant to Health Maintenance Results * US CAROTID DOPPLER (07/15/2024 1:41 PM MONOMER RECOVERY SUPERVISOR) Anatomical Region Laterality Modality Neck Ultrasound 07/15/2024 1:07 PM MONOMER RECOVERY SUPERVISOR Narrative 07/16/2024 5:56 AM MONOMER RECOVERY SUPERVISOR [place] [address] [place] [facility] [place] [id number] [email or web address] Carotid Duplex Patient: Srikanth Love Study ID: [id number] Gender: M : 1955 Age: 68 Race: PEPE Height 180.3cm Study Date: 07/15/2024 Weight: 110.7kg Access. #: [id number] *Referring Physician:Ari Rodgers Gregory *Ordering Physician:Ari Rodgers *Flamer After Lasting:Pauline Loving History: Known carotid disease. PMH: Prior study from 04/14/2024 is available for comparison. Prior R ICA results: 50-69% Prior L ICA results: 50-69% Risk factors: Former tobacco use; date of cessation unknown. Hypertension. Hyperlipidemia. Coronary artery disease. Labs, prior tests, procedures, and surgery: Right endarterectomy. Left endarterectomy. Study data: New node Study status: Routine. Procedure: A vascular evaluation was performed. Image quality was good. Carotid duplex study was performed using real-time imaging coupled with Doppler flow analysis. Carotid duplex study. Complete study and Doppler flow study including spectral analysis, color and hwang scale imaging. Birthdate: Patient birthdate: 1955. Age: Patient is 68year(s) old. Sex: gender: male. Height: 180.3cm. 71in. Weight: 110.7kg. : 244lb. Body mass index: BMI: 34kg/m^2. Body surface area: BSA: 2.39m^2. Study date: Study date: 07/15/2024. Study time: 01:07 PM. Location: Vascular laboratory. Patient status: Outpatient. Impressions - Study data: Prior study from 04/14/2024 is available for comparison. Prior R ICA results: 50-69% Prior L ICA results: 50-69% - Right internal carotid: There is heterogeneous plaque. Stenosis: There is a 50-69% stenosis. - Left internal carotid: There is heterogeneous plaque. Stenosis: There is a 50-69% stenosis. 1. The right vertebral artery is patent with normal antegrade flow. 2. The left vertebral artery is bidirectional flow. Aorta and systemic arteries: Right internal carotid: There is heterogeneous plaque. Stenosis: There is a 50-69% stenosis. Left internal carotid: There is heterogeneous plaque. Stenosis: There is a 50-69% stenosis. Tables: Arterial flow: + +-----+----+ !Location !V sys!V ed! + +-----+----+ !Right CCA - proximal!124 !19.8! + +-----+----+ !Right CCA - distal !114 !18.7! + +-----+----+ !Right ICA - proximal!247 !51.7! + +-----+----+ !Right ICA - mid !122 !37.8! + +-----+----+ !Right ICA - distal !101 !40.2! + +-----+----+ !Right vertebral !75.8 !----! + +-----+----+ !Left CCA - proximal !139 !26.1! + +-----+----+ !Left CCA - distal !98.8 !22.5! + +-----+----+ !Left ICA - proximal !261 !73.6! + +-----+----+ !Left ICA - mid !185 !49.4! + +-----+----+ !Left ICA - distal !116 !42.8! + +-----+----+ !Left vertebral !50.2 !----! + +-----+----+ !Right ECA !164 !----! + +-----+----+ !Left ECA !246 !----! + +-----+----+ *Velocities are expressed in cm/s, Diameters are expressed in cm Velocity ratios: + +-----+-----+ ! !R PSV!L PSV! + +-----+-----+ !Max ICA/distal CCA!2.17 !2.64 ! + +-----+-----+ Prepared and Electronically Authenticated Gamaliel Kearns [id number]:56:35 Procedure Note Gamaliel Kearsn MD - 07/16/2024 [place] [address] [place] [address] [email or web address] Carotid Duplex Patient: Srikanth Love Study ID: [id number] Gender: M : 1955 Age: 68 Race: [facility] Height 180.3cm Study Date: 07/15/2024 Weight: 110.7kg Access. #: [id number] *Referring Physician:* Ari Stearns Gregory *Ordering Physician:* Ari Stearns *Flamer After Lasting:* Pauline Bartlett History: Known carotid disease. PMH: Prior study from 04/14/2024 is available for comparison. Prior R ICA results: 50-69% Prior L ICAresults: 50-69% Risk factors: Former tobacco use; date of cessation unknown. Hypertension. Hyperlipidemia. Coronary artery disease. Labs, prior tests, procedures, and surgery: Right endarterectomy. Left endarterectomy. Study data: New node Study status: Routine. Procedure: A vascular evaluation was performed. Image quality was good. Carotid duplex studywas performed using real-time imaging coupled with Doppler flow analysis. Carotid duplex study. Complete study and Doppler flow studyincluding spectral analysis, color and hwang scale imaging. Birthdate: Patient birthdate: 1955. Age: Patient is 68year(s) old. Sex: Birthgender: male. Height: 180.3cm. 71in. Weight: 110.7kg. : 244lb. Body massindex: BMI: 34kg/m^2. Body surface area: BSA: 2.39m^2. Study date: Studydate: 07/15/2024. Study time: 01:07 PM. Location: Vascular laboratory.Patient status: Outpatient. Impressions - Study data: Prior study from 04/14/2024 is available for comparison.Prior R ICA results: 50-69% Prior L ICA results: 50-69% - Right internal carotid: There is heterogeneous plaque. Stenosis: Thereis a 50-69% stenosis. - Left internal carotid: There is heterogeneous plaque. Stenosis: There suleman 50-69% stenosis. 1. The right vertebral artery is patent with normal antegrade flow. 2. The left vertebral artery is bidirectional flow. Aorta and systemic arteries: Right internal carotid: There is heterogeneous plaque. Stenosis: There suleman 50-69% stenosis. Left internal carotid: There is heterogeneous plaque. Stenosis: There suleman 50-69% stenosis. Tables: Arterial flow: + +-----+----+ !Location !V sys!V ed! + +-----+----+ !Right CCA - proximal!124 !19.8! + +-----+----+ !Right CCA - distal !114 !18.7! + +-----+----+ !Right ICA - proximal!247 !51.7! + +-----+----+ !Right ICA - mid !122 !37.8! + +-----+----+ !Right ICA - distal !101 !40.2! + +-----+----+ !Right vertebral !75.8 !----! + +-----+----+ !Left CCA - proximal !139 !26.1! + +-----+----+ !Left CCA - distal !98.8 !22.5! + +-----+----+ !Left ICA - proximal !261 !73.6! + +-----+----+ !Left ICA - mid !185 !49.4! + +-----+----+ !Left ICA - distal !116 !42.8! + +-----+----+ !Left vertebral !50.2 !----! + +-----+----+ !Right ECA !164 !----! + +-----+----+ !Left ECA !246 !----! + +-----+----+ *Velocities are expressed in cm/s, Diameters are expressed in cm Velocity ratios: + +-----+-----+ ! !R PSV!L PSV! + +-----+-----+ !Max ICA/distal CCA!2.17 !2.64 ! + +-----+-----+ Prepared and Electronically Authenticated Gamaliel Kearns [id number]:56:35 us Ari Stearns MD US ORDERABLES Final Result * MICROALBUMIN/CREATININE RATIO, RANDOM UR (05/25/2024 10:11 AM CDT) Creatinine, Urine 101 20 - 320 mg/dL [facility] MICROALBUMIN, URINE <0.2 See Note: mg/dL [facility] Comment: Reference Range: Reference Range Not established MICROALBUMIN/CREAT RATIO, UR NOTE <30 mg/g creat [facility] Comment: NOTE: The urine albumin value is less than 0.2 mg/dL therefore we are unable to calculate excretion and/or creatinine ratio. The ADA defines abnormalities in albumin excretion as follows: Albuminuria Category Result (mg/g creatinine) Normal to Mildly increased <30 Moderately increased 30-299 Severely increased > OR = 300 The ADA recommends that at least two of three specimens collected within a 3-6 month period be abnormal before considering a patient to be within a diagnostic category. FASTING:YES FASTING: YES Test Performed at: [email or web address] [id number] Natacha Chanel MD Urine URINE SPECIMEN OBTAINED BY CLEAN CATCH PROCEDURE / Unknown 05/25/2024 10:11 AM CDT 05/25/2024 10:11 AM CDT Rober Ashby MD URINE ORDERABLES Final Result [facility] [phone] [place] [id number] [id number] * (ABNORMAL) HEMOGLOBIN A1C (05/25/2024 10:09 AM CDT) HEMOGLOBIN A1C 6.4(H) <5.7 % of total Hgb [facility] Comment: For someone without known diabetes, a hemoglobin A1c value between 5.7% and 6.4% is consistent with prediabetes and should be confirmed with a follow-up test. For someone with known diabetes, a value <7% indicates that their diabetes is well controlled. A1c targets should be individualized based on duration of diabetes, age, comorbid conditions, and other considerations. This assay result is consistent with an increased risk of diabetes. Currently, no consensus exists regarding use of hemoglobin A1c for diagnosis of diabetes for children. ESTIMATED AVERAGE GLUCOSE (MG/DL) 137 mg/dL [facility] ESTIMATED AVERAGE GLUCOSE (MMOL/L) 7.6 mmol/L [facility] ibar[facility] Comment: FASTING:YES FASTING: YES Test Performed at: [facility] [place] [address] [place] [id number] Natacha Joseph Blood 05/25/2024 10:0 9 AM CDT 05/25/2024 10:10 AM CDT us Rober Ashby MD CHEMISTRY ORDERABLES Final Re sult [facility] [phone] [facility] [place] [address] [place] [id number] * LIPID PANEL (05/25/2024 10:09 AM CDT) CHOLESTEROL 104 <200 mg/dL [facility] HDL 44 > OR = 40 mg/dL [facility] TRIGLYCERIDE 93 <150 mg/dL [facility] LDL CALCULATED 42 mg/dL (calc) [facility] Comment: Reference range: <100 Desirable range <100 mg/dL for primary prevention; <70 mg/dL for patients with CHD or diabetic patients with > or = 2 CHD risk factors. LDL-C is now calculated using the Kiley calculation, which is a validated novel method providing better accuracy than the Friedewald equation in the estimation of LDL-C. Blas SS et al. MATIAS. 2013;310(19): 4572-1348 (http://education.Nextinit/faq/MTZ039) CHOL/HDL RATIO 2.4 <5.0 (calc) [facility] NON-HDL CHOLESTEROL 60 <130 mg/dL (calc) [facility] Comment: For patients with diabetes plus 1 major ASCVD risk factor, treating to a non-HDL-C goal of <100 mg/dL (LDL-C of <70 mg/dL) is considered a therapeutic option. Test Performed at: [facility] [address] [place] [address] Natacha Chanel MD Blood 05/25/2024 10:0 9 AM CDT 05/25/2024 10:10 AM CDT us Rober Ashby MD CHEMISTRY ORDERABLES Final Re sult [facility] [phone] [facility] [address] [place] [address] * COLONOSCOPY REPORT (11/14/2020 9:01 AM CDT) Narrative Procedure Note Aditya Mantilla DO - 11/14/2020 9:00 AM CDT [facility] Endoscopy Patient Name: Srikanth Love Procedure Date: 11/14/2020 Date of : 1955 Admit Type: Outpatient Attending MD: Aditya Mantilla MD Procedure: Colonoscopy Indications: High risk colon cancer surveillance: Personal history of colonic polyps, Last colonoscopy: November 2015 Providers: Aditya Mantilla MD Referring MD: Rober Ashby MD Medicines: Monitored Anesthesia Care Complications: No immediate complications. Procedure: Informed consent was obtained for the procedure, including moderate sedation after risks were discussed. Based on the pre-procedure assessment, including review of the patient's medical history, medications, allergies, and review of systems, the patient was deemed to be an appropriate candidate for sedation. A timeout was performed. Continuous ECG monitoring, pulse oximetry, blood pressure monitoring, and direct observation were performed. The scope was introduced through the anus and advanced to the terminal ileum. The colonoscopy was performed without difficulty. The patient tolerated the procedure well. The quality of the bowel preparation was good. Estimated Blood Loss: Estimated blood loss was minimal. Findings: The perianal examination was normal. A 4 mm polyp was found in the sigmoid colon. The polyp was sessile. The polyp was removed with a cold snare. Resection and retrieval were complete. Estimated blood loss was minimal. The terminal ileum appeared normal. Non-bleeding hemorrhoids were found during retroflexion. Impression: - One 4 mm polyp in the sigmoid colon, removed with a cold snare. Resected and retrieved. - The examined portion of the ileum was normal. - Non-bleeding hemorrhoids. Recommendation: - Await pathology results. - Repeat colonoscopy in 7 years for surveillance. Aditya Mantilla MD 11/14/2020 9:00:20 AM This report has been signed electronically. Number of Addenda: [phone] ; [place] [id number] Aditya Mantilla DO GI PROCEDURE ORDERABLES Fin al Result * CT ABDOMEN PELVIS WO CONTRAST (06/25/2017 1:54 PM MONOMER RECOVERY SUPERVISOR) Anatomical Region Laterality Modality Abdomen Computed Tomogra phy 06/25/2017 1:5 4 PM MONOMER RECOVERY SUPERVISOR Impressions 06/25/2017 2:09 PM MONOMER RECOVERY SUPERVISOR IMPRESSION: 5 mm right proximal ureteral stone with moderate right hydronephrosis, retroperitoneal fluid and stranding. Dictated at location 6 Narrative 06/25/2017 2:09 PM MONOMER RECOVERY SUPERVISOR EXAMINATION: CT OF THE ABDOMEN AND PELVIS WITHOUT CONTRAST DATE: 06/25/2017 1:54 PM HISTORY: Kidney stones TECHNIQUE: Transaxial computed tomographic images of the abdomen and pelvis were obtained without intravenous contrast. DLP: 748 mGy-cm FINDINGS: No prior studies available for comparison. The lung bases are clear. The liver, gallbladder, pancreas, spleen and adrenal glands are normal on this limited study. There is a 5 mm stone in the right proximal ureter with moderate right hydronephrosis, forniceal rupture and right retroperitoneal fluid and stranding. The left kidney is normal. The bladder is decompressed. The small bowel is normal in caliber. The colon is normal. There are bilateral fat-containing inguinal hernias. There are no suspicious lytic or blastic osseous lesions. Procedure Note Vasu Andersen MD - 06/25/2017 EXAMINATION: CT OF THE ABDOMEN AND PELVIS WITHOUT CONTRAST DATE: 06/25/2017 1:54 PM HISTORY: Kidney stones TECHNIQUE: Transaxial computed tomographic images of the abdomen and pelvis were obtained without intravenous contrast. DLP: 748 mGy-cm FINDINGS: No prior studies available for comparison. The lung bases are clear. The liver, gallbladder, pancreas, spleen and adrenal glands are normal on this limited study. There is a 5 mm stone in the right proximal ureter with moderate right hydronephrosis, forniceal rupture and right retroperitoneal fluid and stranding. The left kidney is normal. The bladder is decompressed. The small bowel is normal in caliber. The colon is normal. There are bilateral fat-containing inguinal hernias. There are no suspicious lytic or blastic osseous lesions. IMPRESSION: 5 mm right proximal ureteral stone with moderate right hydronephrosis, retroperitoneal fluid and stranding. Dictated at location 6 us Michael Gentile MD CT ORDERABLES Final Resul t from Last 3 Months or Most Recently Relevant to Health Maintenance Insurance MEDICARE PART A AND B [facility] MEDICARE RX [employer] Medicare Part D Advance Directives For more information, please contact: [phone] * Full Code (Latest Code Status on File) Date Activated Date Inactivated Comments 07/03/2023 6:49 PM 07/04/2023 4:22 PM * Full Code Date Activated Date Inactivated Comments 07/03/2023 5:41 PM 07/03/2023 6:49 PM * Full Code Date Activated Date Inactivated Comments 07/03/2023 12:45 PM 07/03/2023 5:41 PM * Full Code Date Activated Date Inactivated Comments 11/14/2020 8:16 AM 11/14/2020 12:32 PM * Full Code Date Activated Date Inactivated Comments 07/03/2020 9:11 AM 07/03/2020 1:48 PM Care Teams Marketing Intelligence Analyst Relationship Specialty Start Date End Date Rober Ashby MD PCP - General 05/03/08
--- OUTSIDE RECORDS SUMMARY | 2024-09-20 14:22 | XMS_ITS | Encounter Summary ---
Author Organization [facility] Address 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 Gender Identity Not on file Sexual Orientation Not on file documented as of this encounter Plan of Treatment Upcoming Encounters Date Type Department Care Team (Late st Contact Info) Description 10/06/2024 10:40 AM CDT Office Visit [facility] Primary [facility] [place] [address] [place] [address] Rober Ashby MD [address] [place] [address] [address] [place] [address] 01/13/2025 1:00 PM CDT Appointment [facility] Supp Svcs Blood Flow [address] [place] [address] Ari Stearns MD [address] [place] [address] 01/13/2025 1:45 PM CDT Office Visit [facility] Plate Preparer [facility] [address] [facility] [address] [place] [address] Ari Stearns MD [address] [place] [address] documented as of this encounter Visit Diagnoses Not on filedocumented in this encounter Care Teams Employee Benefits Specialist Relationship Specialty Start Date End Date Rober Ashby MD PCP - General 05/03/08 documented as of this encounter
--- OUTSIDE RECORDS SUMMARY | 2024-09-20 14:22 | XMS_ITS | Patient Health Summary ---
Author Organization [facility] Address [address] [facility] [place] [address] Care Team Providers Care Television Maintenance Worker Name Role Phone Rober Ashby MD Primary Care Provider [phone] Note from [facility],non-owned Affiliates and Associated Physician Practices is amultiple site organization consisting of ambulatory clinics and hospital sitesin [place], [place], [place] and [place]. This disclosure is being madepursuant to the Care Everywhere program and may not contain all information available regarding this patient. Last updated 18.[facility] Allergies * Aspirin Medications * Be aware that medications may not be up to date on this document. Alwaysverify current medications with the patient. * pravastatin (PRAVACHOL) 20 MG tablet Take 20 mg by mouth at bedtime. * meloxicam (MOBIC) 15 MG tablet Take 15 mg by mouth daily. * terbinafine (LAMISIL) 250 MG tablet Take 250 mg by mouth daily. * allopurinol (ZYLOPRIM) 100 MG tablet Take 100 mg by mouth daily. * levothyroxine (SYNTHROID) 50 MCG tablet Take 50 mcg by mouth. As directed * B-12 PO Take by mouth. As directed * hydrocodone-acetaminophen (NORCO) 7.5-325 MG tablet Take 1 Tab by mouth every 4 hours as needed for Pain. Active Problems Problem Noted Date Diagnosed Date Spinal stenosis 01/02/2010 Social History Tobacco Use Types Packs/Day Years [...] Mass Index 33.47 01/05/2010 10:24 AM CDT Procedures * IMAGING/RADIOLOGY/XRAY RESULTS ORDER(Performed 12/13/2009) Results * IMAGING/RADIOLOGY/XRAY RESULTS ORDER (12/13/2009) Anatomical Region Laterality Modality Other Rolando Garcia MD IMAGING Care Teams Television Maintenance Worker Relationship Specialty Start Date End Date Rober Ashby MD PCP - General 01/05/10
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
--- OUTSIDE RECORDS SUMMARY | 2024-09-20 14:22 | XMS_ITS | Patient Health Record ---
Author Organization [facility] Address [address] [facility] [address] [place], [place] [address] Care Team Providers Care Plaster And Stucco Worker Name Role Phone ROBERT RICHARDSON MD Primary Care Provider Unavaila Fermin Norris Unavailable [phone] MARISOL WATSON MD Unavailable REASON FOR REFERRAL No Information MEDICATIONS Medication SIG (Take, Route, Frequency, Duration) Notes Start Date End Date Status predniSONE 2.5 1 tab(s) orally once a day for 30 Active atorvastatin 40 mg 1 tab(s) orally once a day for 30 day(s) Active Hydrocodone 7.5-325mg every 4 ho urs as needed Active predniSONE 2.5 mg 1 tab(s) orally once a day for 30 day(s) 02/24/2019 Active allopurinol 300 mg 1 tab(s) orally once a day for 30 day(s) Active clopidogrel 75 mg 1 tab(s) orally once a day for 30 day(s) Active traZODone 50 mg 1 tab(s) orally 1 ti mes a day Active gabapentin enacarbil 300 mg 1 cap(s) ora lly 2 times a day Active levothyroxine 137 mcg (0.137 mg) 1 tab(s) orally once a day for 30 day(s) Active SOCIAL HISTORY Sex Assigned At : Social History Observation Description Sex Assigned At Unknown PROBLEMS Problem Type ICD Code Onset Dates Problem Status W/U Status Risk SNOMED Code Notes Problem Arthralgia of multiple sites (M25.50) Active confirmed 57354075 Problem Other specified hypothyroidism (E03.8) Active confirmed 81692959 Problem Essential hypertension (I10) Active confirmed 61253626 Problem Hx of back injury (Z87.828) Active confirmed 101998710 Problem Hx of gout (Z87.39) Active confirmed 438172841 Problem Coronary artery disease involving [place] coronary artery of [place] heart, angina presence unspecified (I25.10) Active confirmed 4225806355152 Problem Tobacco use (Z72.0) Active confirmed 947024449 Problem Vitamin D deficiency (E55.9) Active confirmed Vitamin D deficiency (29994914) PLAN OF TREATMENT Pending Test Test Name Order Date CYCLIC CITRULLINATED PEPTIDE AB IGG 12/26 URIC ACID 01/13/2019 C-REACTIVE PROTEIN 01/13/2019 SJOGREN'S ANTIBODIES 01/13/2019 MISCELLANEOUS LAB TEST 01/13/2019 RHEUMATOID FACTOR 01/13/2019 SEDIMENTATION RATE 01/13/2019 VITAMIN D 25 HYDROXY 01/13/2019 Insurance Providers Payer Name Payer Address Payer Phone Subscriber Number Group Number Insured Name Patient Relationship to Insured Coverage Start Date Coverage End Date MEDICARE [address] [address] [place] [address] [id number] Srikanth Love Self - patient is the insured 9 [facility] [address] [place] [address] [id number] Srikanth Love Self - patient is the insured 9 MEDICAL (GENERAL) HISTORY Medical History History ICD Code bruises easily change in moles loss of hearing diabetes thyroid disease difficulty breathing Surgical History Surgery Date(Month/Year) Back operation 1988 heart valve 07/2014 Carotid artery 02/2016 Kidney stone 06/2017
--- OUTSIDE RECORDS SUMMARY | 2024-09-20 14:22 | XMS_ITS | Encounter Summary ---
Author Organization [facility] Address [address] [place] [address] Care Team Providers Care Medical Intern Name Role Phone Rober Ashby MD Primary Care Provider [phone] Encounter Details Date Type Department Care Team (Late Contact Info) Description 08/10/[address] 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 Gender Identity Not on file Sexual Orientation Not on file documented as of this encounter Last Filed Vital Signs Vital Sign Reading Time Taken Comments Blood Pressure 130/80 08/10/2007 11:15 AM YOUTH SERVICES LIBRARIAN Pulse - - Temperature 36.6 C (97.9 F) 08/10/2007 11:15 AM YOUTH SERVICES LIBRARIAN Respiratory Rate - - Oxygen Saturation - - Inhaled Oxygen Concentration - - Weight 126.1 kg (278 lb) 08/10/2007 11:15 AM YOUTH SERVICES LIBRARIAN Height - - Body Mass Index 38.77 08/22/2004 10:30 AM YOUTH SERVICES LIBRARIAN documented in this encounter Plan of Treatment Upcoming Encounters Date Type Department Care Team ([facility] Contact Info) Description 10/06/2024 10:40 AM CDT Office Visit [facility] Primary Care [address] [place] [phone] Rober Ashby MD [address] [facility] [address] [place] [address] 01/13/2025 1:00 PM CDT Appointment [facility] Supp Svcs Blood Flow [address] [place] [address] Ari Stearns MD [address] [facility] [address] [place] [address] 01/13/2025 1:45 PM CDT Office [facility] Commercial [facility] [address] [facility] [address] [place] [address] Ari Stearns MD [address] [facility] [address] [place] [address] documented as of this encounter Visit Diagnoses Not on filedocumented in this encounter Care Teams Medical Intern Relationship Specialty Start Date End Date Rober Ashby MD PCP - General 05/03/08 documented as of this encounter
--- OUTSIDE RECORDS SUMMARY | 2024-09-20 14:22 | XMS_ITS | Encounter Summary ---
Author Organization [facility] Address [address] [place] [address] Care Team Providers Care Tour Conductor Name Role Phone Rober Ashby MD Primary Care Provider [phone] Encounter Details Date Type Department Care Team (Late Contact Info) Description 04/08/2005 Outpatient Historical [facility] Internal Medicine [address] [address] Rober Ashby MD [address] [place] [address] [address] [place] [address] Social History Tobacco Use Types Packs/Day Years Used Date Smoking Tobacco: Never Assessed Sex and Gender Information Value Date Recorded Sex Assigned at Not on file Legal Sex Male 4:31 AM CARDIOPULMONARY TECHNOLOGIST CHIEF Gender Identity Not on file Sexual Orientation Not on file documented as of this encounter Last Filed Vital Signs Vital Sign Reading Time Taken Comments Blood Pressure 130/80 04/08/2005 2:30 PM CDT Pulse - - Temperature 36.2 C (97.2 F) 04/08/2005 2:30 PM CDT Respiratory Rate - - Oxygen Saturation - - Inhaled Oxygen Concentration - - Weight 104.3 kg (230 lb) 04/08/2005 2:30 PM CDT Height - - Body Mass Index 32.08 08/22/2004 10:30 AM CARDIOPULMONARY TECHNOLOGIST CHIEF documented in this encounter Plan of Treatment Upcoming Encounters Date Type Department Care Team (Late Contact Info) Description 10/06/2024 10:40 AM CDT Office Visit [facility] Primary Care [address] [place] [phone] Rober Ashby MD [address] [facility] [address] [place] [phone] 01/13/2025 1:00 PM CDT Appointment [facility] Supp Svcs Blood Flow [address] [place] [address] Ari Stearns MD [address] [facility] [address] [place] [address] 01/13/2025 1:45 PM CDT Office Visit [facility] [address] [facility] [address] [place] [address] Ari Stearns MD [address] [facility] [address] [place] [address] documented as of this encounter Visit Diagnoses Not on filedocumented in this encounter Care Teams Tour Conductor Relationship Specialty Start Date End Date Rober Ashby MD PCP - General 05/03/08 documented as of this encounter
--- OUTSIDE RECORDS SUMMARY | 2024-09-20 14:22 | XMS_ITS | Referral Summary ---
Author Organization [facility] Address [address] [facility] [place] [address] Care Team Providers Care Asphalt Still Operator Name Role Phone Rober Ashby MD Primary Care Provider [phone] Source Comments [facility],non-owned Affiliates and Associated Physician Practices is amultiple site organization consisting of ambulatory clinics and hospital sitesin [place], [place], [place] and [place]. This disclosure is being madepursuant to the Care Everywhere program and may not contain all information available regarding this patient. Last updated 18.[facility] [employer] Allergies Active Allergy Reactions Criticality Noted Date [...] 01/05/2010 10:24 AM CDT Plan of Treatment Not on file Care Teams Asphalt Still Operator Relationship Specialty Start Date End Date Rober Ashby MD PCP - General 01/05/10
--- OUTSIDE RECORDS SUMMARY | 2024-09-20 14:22 | XMS_ITS | Encounter Summary ---
Author Organization [facility] Address 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 CHIEF COMPLAINT Patient complains of sinus congestion, cough, fever. HISTORY: cough congestion 2-3 weeks occ wheeze, fever sinus drainage--assoc with headache SOCIAL HISTORY: TOBACCO USE: Previously smoked. DISCUSSED SMOKING: neg. OCCUPATION: . PHYSICAL EXAMINATION: EARS, NOSE, MOUTH AND THROAT: EARS: EFFUSION PRESENT BILATERALLY, TYMPANIC MEMBRANES INFLAMED BILATERALLY. ORAL: No erythema in oropharynx. NECK/THYROID: Trachea midline. No thyroid enlargement, tenderness, or mass. No supraclavicular or cervical adenopathy. RESPIRATORY: EXPIRATORY WHEEZE BILATERALLY. CARDIOVASCULAR: CARDIAC: Regular rhythm. No murmurs, rubs, or gallops. EDEMA/VARICOSITIES OF EXTREMITIES: No edema or varicosities. ASSESSMENT/PLAN: 461.9-SINUSITIS UNSPECIFIED rx, with bronchitis and wheezing MEDICATIONS: MEDROL (GEORGES) ORAL TABLET 4 MG, DIRECTED, 1 Dispensed, status: NEW PRESCRIPTION, 08/10/2007. ZITHROMAX Z-GEORGES ORAL TABLET 250 MG, DIRECTED, 1 Dispensed, status: NEW PRESCRIPTION, 08/10/2007. 784.0-HEADACHE related to above, reassess if persists Patient Education: Risks, benefits, and possible side effects of medication(s) were reviewed with the patient. The patient was allowed to ask questions to stated satisfaction. RETURN VISIT : Instructed to call if not improving. Electronically Signed by: Rober Ashby MD on Friday, August 10, 2007 documented in this encounter Plan of Treatment Upcoming Encounters Date Type Department Care Team (Late st Contact Info) Description 10/06/2024 10:40 AM CDT Office Visit [facility] Primary Care [address] [address] Rober Ashby MD [address] [place] [address] [address] [place] [address] 01/13/2025 1:00 PM CDT Appointment [facility] Supp Svcs Blood Flow [address] [place] [address] Ari Stearns MD [address] [facility] [address] [place] [address] 01/13/2025 1:45 PM CDT Office Visit [facility] Activity Assistant [facility] [address] [facility] [address] [place] [address] Ari Stearns MD [address] [facility] [address] [place], [place] [phone] documented as of this encounter Visit Diagnoses Not on filedocumented in this encounter Care Teams Shank Archer Relationship Specialty Start Date End Date Rober Ashby MD PCP - General 05/03/08 documented as of this encounter
--- OUTSIDE RECORDS SUMMARY | 2024-09-20 14:22 | XMS_ITS | Encounter Summary ---
Author Organization [facility] Address 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 Gender Identity Not on file Sexual Orientation Not on file documented as of this encounter Last Filed Vital Signs Vital Sign Reading Time Taken Comments Blood Pressure 120/80 03/26/2007 11:45 AM CDT Pulse - - Temperature 36.6 C (97.9 F) 03/26/2007 11:45 AM CDT Respiratory Rate - - Oxygen Saturation - - Inhaled Oxygen Concentration - - Weight 99.8 kg (220 lb) 03/26/2007 11:45 AM CDT Height - - Body Mass Index 30.68 08/22/2004 10:30 AM TEXTILE SUPERVISOR documented in this encounter Plan of Treatment Upcoming Encounters Date Type Department Care Team (Late Contact Info) Description 10/06/2024 10:40 AM CDT Office Visit [facility] Primary Care [address] [place] [phone] Rober Ashby MD [address] [facility] [address] [place] [phone] 01/13/2025 1:00 PM CDT Appointment [facility] Supp Svcs Blood Flow [address] [place] [address] Ari Stearns MD [address] [facility] [address] [place] [address] 01/13/2025 1:45 PM CDT Office Visit [facility] [address] [facility] [address] [place] [address] Ari Stearns MD [address] [facility] [address] [place] [phone] documented as of this encounter Visit Diagnoses Not on filedocumented in this encounter Care Teams Heavy Forger Relationship Specialty Start Date End Date Rober Ashby MD PCP - General 05/03/08 documented as of this encounter
--- OUTSIDE RECORDS SUMMARY | 2024-09-20 14:22 | XMS_ITS | Encounter Summary ---
Author Organization [facility] Address [address] [place] [address] Care Team Providers Care Certified Tower Climber Name Role Phone Rober Ashby MD Primary Care Provider [phone] Encounter Details Date Type Department Care Team ([facility] Contact Info) Description 11/24/2006 Outpatient Historical [facility] Internal Medicine [address] [address] Rober Ashby MD [address] [place] [address] [address] [place] [address] Social History Tobacco Use Types Packs/Day Years Used Date Smoking Tobacco: Never Assessed Sex and Gender Information Value Date Recorded Sex Assigned at Not on file Legal 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 Male 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 CLINICAL TRAINER Gender Identity Not on file Sexual Orientation Not on file documented as of this encounter Last Filed Vital Signs Vital Sign Reading Time Taken Comments Blood Pressure 130/80 11/24/2006 3:00 PM CDT Pulse - - Temperature - - Respiratory Rate - - Oxygen Saturation - - Inhaled Oxygen Concentration - - Weight 102.1 kg (225 lb) 11/24/2006 3:00 PM CDT Height - - Body Mass Index 31.38 08/22/2004 10:30 AM CLINICAL TRAINER documented in this encounter Plan of Treatment Upcoming Encounters Date Type Department Care Team ([facility] Contact Info) Description 10/06/2024 10:40 AM CDT Office Visit [facility] Primary Care [address] [place] [address] Rober Ashby MD [address] [facility] [address] [place] [address] 01/13/2025 1:00 PM CDT Appointment [facility] Supp Svcs Blood Flow [address] [place] [address] Ari Stearns MD [address] [facility] [address] [place] [phone] 01/13/2025 1:45 PM CDT Office Visit [facility] [address] [facility] [address] [place] [address] Ari Stearns MD [address] [facility] [address] [place] [address] documented as of this encounter Visit Diagnoses Not on filedocumented in this encounter Care Teams Certified Tower Climber Relationship Specialty Start Date End Date Rober Ashby MD PCP - General 05/03/08 documented as of this encounter
--- OUTSIDE RECORDS SUMMARY | 2024-09-20 14:22 | XMS_ITS | Encounter Summary ---
Author Organization [facility] Address [address] [place] [address] Care Team Providers Care Research Animal Facility Supervisor Name Role Phone Rober Ashby MD Primary Care Provider [phone] Encounter Details Date Type Department Care Team (Late Contact Info) Description 08/22/2004 Outpatient Historical [facility] Internal Medicine [address] [address] Rober Ashby MD [address] [place] [address] [address] [place] [address] Social History Tobacco Use Types Packs/Day Years Used Date Smoking Tobacco: Never Assessed Sex and Gender Information Value Date Recorded Sex Assigned at Not on file Legal Sex Male 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 Gender Identity Not on file Sexual Orientation Not on file documented as of this encounter Last Filed Vital Signs Vital Sign Reading Time Taken Comments Blood Pressure 130/80 08/22/2004 10:30 AM NUMERICAL 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 Pulse - - Temperature - - Respiratory Rate - - Oxygen Saturation - - Inhaled Oxygen Concentration - - Weight 104.3 kg (230 lb) 08/22/2004 10:30 AM NUMERICAL 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 Height 180.3 cm (5' 11 ) 08/22/2004 10:30 AM NUMERICAL 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 Body Mass Index 32.08 08/22/2004 10:30 AM NUMERICAL 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 documented in this encounter Plan of Treatment Upcoming Encounters Date Type Department Care Team ([facility] Contact Info) Description 10/06/2024 10:40 AM CDT Office Visit [facility] Primary Care [address] [place] [phone] Rober Ashby MD [address] [facility] [address] [place] [phone] 01/13/2025 1:00 PM CDT Appointment [facility] Supp Svcs Blood Flow [address] [place] [address] Ari Stearns MD [address] [facility] [address] [place] [phone] 01/13/2025 1:45 PM CDT Office Visit [facility] [address] [facility] [address] [place] [address] Ari Stearns MD [address] [facility] [address] [place] [phone] documented as of this encounter Visit Diagnoses Not on filedocumented in this encounter Care Teams Research Animal Facility Supervisor Relationship Specialty Start Date End Date Rober Ashby MD PCP - General 05/03/08 documented as of this encounter
--- OUTSIDE RECORDS SUMMARY | 2024-09-20 14:27 | XMS_ITS | CONTINUITY OF CARE DOCUMENT ---
Author Name dale hunter Address Unknown Organization [facility] Address [address] [facility] [address] [place] [address] Phone [phone] Care Team Providers Care Layout Worker Name Role Phone Danika Ortiz MD Unavailable ROBERT RICHARDSON MD Unavailable ROBERT RICHARDSON MD Unavailable [phone] PROBLEMS Condition Status Date Provider Notes Other [...] In-person encounter Office Visit Danika Ortiz MD [place] [facility] CAD - S/P four vessel CABG 2014 - Casey to LAD, Casey to radial and sequential OM1 & OM3, SVG to RCAHyperlipidemia - In-person encounter Office Visit Danika Ortiz MD [facility] Other symptoms involving cardiovascular systemCAD - [...] Payer name Policy type / Coverage type [place] red libertarian ID [facility] [id number] ADVANCE DIRECTIVES Name Date DISCUSSED - NO [...] bruits. Had a carotid doppler done from [facility] the results of which are pending. Danika [...] bruit. Recently had a carotid doppler at [facility], will get the report. Danika Ortiz MD Cardiology:He has do ne remarkably well. Has good exercise tolerance, no symptoms of CP or SOB. He is on ASA/plavix which he continues. We will get his bypass report from [facility]. Danika Ortiz MD HISTORY OF PROCEDURES Procedure Date Procedure Name Provider Procedure Notes S tatus EKG Danika Ortiz MD complet ed SNOMED-CT: [id number] Current Medications Documented Danika Ortiz MD completed EKG Danika Ortiz MD complet ed SNOMED-CT: [id number] Current Medications Documented Danika Ortiz MD completed
== END 2024-09-20 13:41 | disposition home or self-care (01) ==
PROVIDERS: Emergency Provider Nurse Practitioner; PCP Internal Medicine
DX: J22 Unspecified acute lower respiratory infection (principal)
CPT/HCPCS: 99213; G0463